=== PATIENT | female | born 1930 | race Caucasian/White ===

== ENCOUNTER 2018-01-12 20:09 | Inpatient (IN) | payer OTHER ==
[~2018-01-12] VITALS: Ht 121.9 cm; Wt 5.0 kg
[~2018-01-12 20:09] MED LIST: ALDACTONE25 MG PO; ARICEPT10 MG PO; CARDIZEM30 MG PO; COUMADIN2 MG PO; LASIX40 MG PO; PRILOSEC20 MG PO; TOPROL XL100 MG PO; ZOCOR40 MG PO; ZOLOFT100 MG PO
[2018-01-12] MEDS ORDERED: CANNABIS (20:28)
[2018-01-12] MEDS ORDERED: VIAGRA100 MG (20:31)
[2018-01-23] MEDS ORDERED: LEVAQUIN500 MG PO (12:48)
[2018-01-23] MEDS ORDERED: RAYOS5 MG PO ×2 (12:50→13:15)
[2018-01-23] MEDS ORDERED: LASIX20 MG PO (12:51)
== END 2018-01-23 14:19 | disposition home or self-care (01) | DRG 871 ==
LOC: ER 20:09 → ICU 01-13 10:11 → ICU-2 01-13 10:11 → ICU 01-16 03:19 → MEDI 01-17 18:59
PROC: 3E0F7GC Introduction of Other Therapeutic Substance into Respiratory Tract, Via Natural or Artificial Opening (ICD-10-PCS; principal; 2018-01-13)
PROC: 4A033R1 Measurement of Arterial Saturation, Peripheral, Percutaneous Approach (ICD-10-PCS; 2018-01-13)
PROC: B246ZZZ Ultrasonography of Right and Left Heart (ICD-10-PCS; 2018-01-13)
PROC: 4A12X4Z Monitoring of Cardiac Electrical Activity, External Approach (ICD-10-PCS; 2018-01-17)
PROC: BB24ZZZ Computerized Tomography (CT Scan) of Bilateral Lungs (ICD-10-PCS; 2018-01-20)
PROC: 02H633Z Insertion of Infusion Device into Right Atrium, Percutaneous Approach (ICD-10-PCS; 2018-01-21)
DX: A41.9 Sepsis, unspecified organism (principal); J18.9 Pneumonia, unspecified organism; I50.33 Acute on chronic diastolic (congestive) heart failure; R65.21 Severe sepsis with septic shock; I13.0 Hypertensive heart and chronic kidney disease with heart failure and stage 1 through stage 4 chronic kidney disease, or unspecified chronic kidney disease; N17.8 Other acute kidney failure; E87.2 Acidosis; N39.0 Urinary tract infection, site not specified; J90 Pleural effusion, not elsewhere classified; N18.3 Chronic kidney disease, stage 3 (moderate); I48.0 Paroxysmal atrial fibrillation; I34.0 Nonrheumatic mitral (valve) insufficiency; R09.02 Hypoxemia; D69.59 Other secondary thrombocytopenia; M06.89 Other specified rheumatoid arthritis, multiple sites; I73.89 Other specified peripheral vascular diseases; I27.29 Other secondary pulmonary hypertension; G62.89 Other specified polyneuropathies; E16.1 Other hypoglycemia; Z78.1 Physical restraint status

== ENCOUNTER 2018-02-20 17:16 | Inpatient (IN) | payer OTHER ==
[~2018-02-20] VITALS: Ht 162.6 cm; Wt 49.9 kg
[~2018-02-20 17:16] MED LIST changes: +CANNABIS; +LASIX20 MG PO; +LEVAQUIN500 MG PO; +RAYOS5 MG PO; +VIAGRA100 MG
[2018-02-20] MEDS ORDERED: PEPCID AC20 MG (17:46)
== END 2018-02-21 20:45 | disposition expired | DRG 871 ==
LOC: ER 17:16 → ICU 21:32
PROC: 4A033R1 Measurement of Arterial Saturation, Peripheral, Percutaneous Approach (ICD-10-PCS; principal; 2018-02-20)
PROC: B246ZZZ Ultrasonography of Right and Left Heart (ICD-10-PCS; 2018-02-21)
PROC: 02HV33Z Insertion of Infusion Device into Superior Vena Cava, Percutaneous Approach (ICD-10-PCS; 2018-02-21)
DX: A41.9 Sepsis, unspecified organism (principal); R65.21 Severe sepsis with septic shock; N17.8 Other acute kidney failure; E87.2 Acidosis; N18.4 Chronic kidney disease, stage 4 (severe); I13.0 Hypertensive heart and chronic kidney disease with heart failure and stage 1 through stage 4 chronic kidney disease, or unspecified chronic kidney disease; A04.72 Enterocolitis due to Clostridium difficile, not specified as recurrent; I50.30 Unspecified diastolic (congestive) heart failure; E86.0 Dehydration; I48.0 Paroxysmal atrial fibrillation; I27.29 Other secondary pulmonary hypertension; I34.0 Nonrheumatic mitral (valve) insufficiency; D69.59 Other secondary thrombocytopenia; K57.30 Diverticulosis of large intestine without perforation or abscess without bleeding; M06.89 Other specified rheumatoid arthritis, multiple sites; I25.10 Atherosclerotic heart disease of native coronary artery without angina pectoris; R09.02 Hypoxemia; Z66 Do not resuscitate; I73.89 Other specified peripheral vascular diseases; G62.89 Other specified polyneuropathies; I46.8 Cardiac arrest due to other underlying condition; I35.1 Nonrheumatic aortic (valve) insufficiency